=== PATIENT | male | born 1965 | race Hispanic/Latino ===

== ENCOUNTER 2019-09-07 08:59 | Emergency (ER) | payer BC ==
[2019-09-07] MEDS ORDERED: Dexamethasone 10 MG/ML VIAL ONE (09:59)
[2019-09-07 10:05] LABS: #Eosinphils 0.1 thou/uL (0.0-0.7); #Lymphocytes 1.5 thou/uL (1.20-3.40); #Monocytes 0.4 thou/uL (0.11-0.59); #Neutrophils 3.1 thou/uL (1.40-6.50); %Basophils 0.6 % (0.0-1.0); %Eosinophils 2.1 % (0.0-10.0); %Lymphocytes 29.6 % (21.0-51.0); %Monocytes 7.1 % (0.0-10.0); %Neutrophils 60.6 % (42.0-75.0); Hemoglobin 14.3 g/dL (14.0-18.0); Mean Corpuscular HGB CONC 34.4 g/dL (32.0-36.0); Mean Corpuscular Hemoglobin 31.1 pg (27.0-31.0); Mean Corpuscular Volume 90.3 fL (78.0-98.0); Mean Platelet Volume 9.4 fL (7.4-10.4); Platelet Count 151 thou/uL (130-400); RBC Distribution Width 11.7 % (11.5-14.5); Red Blood Cell (RBC) Count 4.61 mill/uL (4.70-6.10); White Blood Cell (WBC) Count 5.2 thou/uL (4.8-10.8)
[2019-09-07] MEDS ORDERED: EPINEPHrine 1 MG/ML AMP ONE (10:10)
[2019-09-07 10:21] LABS: ALT (SGPT) 69 U/L (8-55); AST (SGOT) 60 U/L (5-34); Albumin 4.3 g/dL (3.5-5.0); Alkaline Phosphatase 101 U/L (40-110); Anion Gap 18 mmol/L (10-20); BUN (Urea Nitrogen) 14 mg/dL (8.4-25.7); Bilirubin, Total 0.8 mg/dL (0.2-1.2); Calc. Creatinine Clearance 0 mL/min (70-130); Calcium 9.5 mg/dL (7.8-10.44); Carbon Dioxide 17 mmol/L (22-29); Chloride 107 mmol/L (98-107); Estimated GFR-MDRD Greater than 90; Globulin 3.5 g/dL (2.4-3.5); Glucose 123 mg/dL (70-105); Potassium 4.4 mmol/L (3.5-5.1); Protein, Total 7.8 g/dL (6.0-8.3); Sodium 138 mmol/L (136-145)
[2019-09-07] MEDS ORDERED: Lorazepam 2 MG/ML VIAL ONE (10:23)
[2019-09-07] MEDS ORDERED: diphenhydrAMINE 50 MG/ML VIAL ONE (10:49)
--- NOTE | 2019-09-07 10:58 | CT ---
EXAM: CT neck with contrast HISTORY: The patient feels like something is in his neck. He can't cough it up. Patient recently ate baked chicken. COMPARISON: None TECHNIQUE: Multiple contiguous axial images were obtained and a CT of the neck with contrast. Sagitta l and coronal reformats were performed. FINDINGS: No mucosal abnormality is seen in the nasopharynx, oropharynx, hypopharynx, or subglottic regions. Th e patient's uvula is prominent. No mass is seen. No radiopaque foreign body is seen. The parapharyngeal spaces are symmetric. No cervical adenopathy is seen. The salivary glands are symmetric without focal abnormality. The thyroid is unremarkable. No osseous abnormality is seen in the cervical spine. The visualized intracranial structures are unremarkable. The lung apices are unremarkable. IMPRESSION: No significant soft tissue abnormality of the neck.
== END 2019-09-07 12:16 | disposition home or self-care (01) ==
LOC: ERS 08:59
DX: K12.2 Cellulitis and abscess of mouth (principal); M10.9 Gout, unspecified; E11.9 Type 2 diabetes mellitus without complications; E03.9 Hypothyroidism, unspecified; Z79.82 Long term (current) use of aspirin; Z79.84 Long term (current) use of oral hypoglycemic drugs; Z79.899 Other long term (current) drug therapy
CPT/HCPCS: 70491; 80053; 85025; 96361; 96372; 96374; 96375; J0171; J1100; J1200; J2060

== ENCOUNTER 2020-09-02 10:52 | Outpatient (CLI) | payer BC ==
--- NOTE | 2020-09-02 11:34 | RAD ---
Exam:2 views right hip HISTORY: Pain COMPARISON: None FINDINGS: Contour of the femoral head is maintained. Hip joint spaces preserved. No fracture. Visualized sacrum and bony pelvis are intact. IMPRESSION: No significant degenerative change.
== END 2020-09-02 10:53 | disposition home or self-care (01) ==
LOC: BICRAD 10:52
PROVIDERS: ATTEND Family Medicine
DX: M25.551 Pain in right hip (principal)

== ENCOUNTER 2021-03-03 06:37 | Emergency (ER) | payer BC ==
[2021-03-03] MEDS ORDERED: diphenhydrAMINE 25 MG CAP ONE (07:06)
[2021-03-03] MEDS ORDERED: Dexamethasone 4 MG TAB ONE (07:13)
== END 2021-03-03 08:43 | disposition home or self-care (01) ==
LOC: ERS 06:37
DX: K12.2 Cellulitis and abscess of mouth (principal); E11.9 Type 2 diabetes mellitus without complications; E03.9 Hypothyroidism, unspecified; Z79.899 Other long term (current) drug therapy; Z79.82 Long term (current) use of aspirin
CPT/HCPCS: 87081; 87430; 99284; J8540; Q0163

== ENCOUNTER 2022-05-14 13:48 | Observation (INO) | payer BC ==
[2022-05-14] MEDS ORDERED: Aspirin Chewable 81 MG TAB ONE (14:34)
[2022-05-14 14:36] LABS: #Eosinphils 0.1 thou/uL (0.0-0.7); #Lymphocytes 1.6 thou/uL (1.20-3.40); #Monocytes 0.6 thou/uL (0.11-0.59); #Neutrophils 4.1 thou/uL (1.40-6.50); %Basophils 0.6 % (0.0-1.0); %Eosinophils 2.2 % (0.0-10.0); %Lymphocytes 24.5 % (21.0-51.0); %Monocytes 9.1 % (0.0-10.0); %Neutrophils 63.6 % (42.0-75.0); Hemoglobin 16.8 g/dL (14.0-18.0); Mean Corpuscular HGB CONC 33.5 g/dL (32.0-36.0); Mean Corpuscular Volume 92.7 fL (78.0-98.0); Mean Platelet Volume 10.9 fL (7.4-10.4); Platelet Count 122 thou/uL (130-400); White Blood Cell (WBC) Count 6.4 thou/uL (4.8-10.8)
[2022-05-14 14:58] LABS: ALT (SGPT) 63 U/L (8-55); AST (SGOT) 53 U/L (5-34); Alkaline Phosphatase 75 U/L (40-110); Anion Gap 14 mmol/L (10-20); BUN (Urea Nitrogen) 12 mg/dL (8.4-25.7); Bilirubin, Total 0.6 mg/dL (0.2-1.2); Calc. Creatinine Clearance 0 mL/min (70-130); Carbon Dioxide 25 mmol/L (22-29); Chloride 103 mmol/L (98-107); Estimated GFR 101; Globulin 3.3 g/dL (2.4-3.5); Glucose 108 mg/dL (70-105); Lipase 44 U/L (8-78); Magnesium 1.8 mg/dL (1.6-2.6); Potassium 3.8 mmol/L (3.5-5.1); Protein, Total 7.3 g/dL (6.0-8.3); Sodium 138 mmol/L (136-145)
[2022-05-14 18:26] LABS: Troponin I Less than 0.010 ng/mL (< 0.028)
[2022-05-14] MEDS ORDERED: Dextrose 5% in Water 1,000 ML IV PRN (18:46)
[2022-05-14] MEDS ORDERED: HumaLOG 300 UNITS/3 ML VIAL SC PRN ×2 (18:46)
[2022-05-14] MEDS ORDERED: Acetaminophen 325 MG TAB PO PRN (18:46)
[2022-05-14] MEDS ORDERED: Dextrose 50% Abboject 50 ML SYRINGE SLOW IVP PRN (18:46)
[2022-05-14] MEDS ORDERED: Lisinopril 10 MG TAB ONE (18:49)
[2022-05-14] MEDS ORDERED: Nitroglycerin 0.4 MG TAB (25 Tab Bottle) SL PRN (18:59)
[2022-05-14] MEDS ORDERED: hydrALAZINE 10 MG TAB PO PRN (19:17)
[2022-05-14] MEDS ORDERED: hydrALAZINE 20 MG/ML VIAL SLOW IVP PRN (19:32)
[2022-05-14 20:49] LABS: Hemoglobin A1c 5.9 % (4.0-6.0)
[2022-05-14 20:57] VITALS: BMI 42.6
[2022-05-14 21:06] LABS: Troponin I Less than 0.010 ng/mL (< 0.028)
[2022-05-15 04:57] LABS: #Eosinphils 0.2 thou/uL (0.0-0.7); #Lymphocytes 1.8 thou/uL (1.20-3.40); #Monocytes 0.6 thou/uL (0.11-0.59); #Neutrophils 3.1 thou/uL (1.40-6.50); %Basophils 0.3 % (0.0-1.0); %Eosinophils 2.8 % (0.0-10.0); %Lymphocytes 31.3 % (21.0-51.0); %Monocytes 10.8 % (0.0-10.0); %Neutrophils 54.9 % (42.0-75.0); Hemoglobin 16.4 g/dL (14.0-18.0); Mean Corpuscular HGB CONC 32.7 g/dL (32.0-36.0); Mean Corpuscular Hemoglobin 30.2 pg (27.0-31.0); Mean Corpuscular Volume 92.4 fL (78.0-98.0); Platelet Count 120 thou/uL (130-400); RBC Distribution Width 11.9 % (11.5-14.5); Red Blood Cell (RBC) Count 5.44 mill/uL (4.70-6.10); White Blood Cell (WBC) Count 5.6 thou/uL (4.8-10.8)
[2022-05-15 05:23] LABS: ALT (SGPT) 59 U/L (8-55); AST (SGOT) 45 U/L (5-34); Albumin 3.8 g/dL (3.5-5.0); Alkaline Phosphatase 69 U/L (40-110); Anion Gap 12 mmol/L (10-20); BUN (Urea Nitrogen) 9 mg/dL (8.4-25.7); Bilirubin, Total 0.5 mg/dL (0.2-1.2); Calc. Creatinine Clearance 206 mL/min (70-130); Calcium 8.6 mg/dL (7.8-10.44); Carbon Dioxide 27 mmol/L (22-29); Cardiac Risk 4.2 (Less than 4.5); Chloride 104 mmol/L (98-107); Cholesterol 123 mg/dl (< 200 Desired); Estimated GFR 102; Globulin 2.7 g/dL (2.4-3.5); Glucose 87 mg/dL (70-105); HDL Cholesterol 29 mg/dL (>60 Neg Risk); LDL Cholesterol, Calculated 73 mg/dL; Potassium 3.8 mmol/L (3.5-5.1); Protein, Total 6.5 g/dL (6.0-8.3); Sodium 139 mmol/L (136-145); Triglycerides 103 mg/dL (Less than 150)
[2022-05-15] MEDS ORDERED: Levothyroxine Sodium 125 MCG TAB PO SCH (06:00)
[2022-05-15] MEDS ORDERED: Regadenoson 0.4 MG/5 ML SYRINGE ONE (08:33)
[2022-05-15] MEDS ORDERED: Empagliflozin 25 MG TAB PO SCH (09:00)
[2022-05-15] MEDS ORDERED: Lisinopril 10 MG TAB PO SCH (09:00)
[2022-05-15] MEDS ORDERED: Glimepiride 4 MG TAB PO SCH (09:00)
[2022-05-15] MEDS ORDERED: Allopurinol 100 MG TAB PO SCH (09:00)
[2022-05-15] MEDS ORDERED: Aspirin Chewable 81 MG TAB PO SCH (09:00)
[2022-05-15 11:43] VITALS: BP 145/69; TEMP 97.5
[2022-05-15] MEDS ORDERED: Rosuvastatin 20 MG TAB PO SCH (21:00)
== END 2022-05-15 15:08 | disposition home or self-care (01) ==
LOC: ERS 13:48 → 2SW 17:32
PROVIDERS: ADMIT Student in an Organized Health Care Education/Training Program; ATTEND Student in an Organized Health Care Education/Training Program
DX: R07.2 Precordial pain (principal); I10 Essential (primary) hypertension; R74.01 Elevation of levels of liver transaminase levels; D69.6 Thrombocytopenia, unspecified; E11.65 Type 2 diabetes mellitus with hyperglycemia; E03.9 Hypothyroidism, unspecified; M10.9 Gout, unspecified; Z79.82 Long term (current) use of aspirin; Z79.84 Long term (current) use of oral hypoglycemic drugs; Z79.890 Hormone replacement therapy; Z79.899 Other long term (current) drug therapy; Z91.013 Allergy to seafood; Z91.041 Radiographic dye allergy status; Z20.822 Contact with and (suspected) exposure to COVID-19
CPT/HCPCS: 36415; 36416; 71045; 78452; 80053; 80061; 83036; 83690; 83735; 84484; 85025; 85379; 93005; 93017; 94760; A9500; G0378; J2785; U0003; U0005

== ENCOUNTER 2022-10-13 08:47 | Emergency (ER) | payer BC, OTHER ==
[2022-10-13 09:22] LABS: #Eosinphils 0.2 thou/uL (0.0-0.7); #Lymphocytes 1.4 thou/uL (1.20-3.40); #Monocytes 0.4 thou/uL (0.11-0.59); #Neutrophils 3.4 thou/uL (1.40-6.50); %Lymphocytes 26.1 % (21.0-51.0); %Monocytes 7.6 % (0.0-10.0); %Neutrophils 63.3 % (42.0-75.0); Hemoglobin 16.9 g/dL (14.0-18.0); Mean Corpuscular HGB CONC 34.1 g/dL (32.0-36.0); Mean Corpuscular Hemoglobin 30.2 pg (27.0-31.0); Mean Corpuscular Volume 88.8 fl (78.0-98.0); Mean Platelet Volume 10.4 fL (7.4-10.4); Platelet Count 125 10x3/uL (130-400); RBC Distribution Width 12.2 % (11.5-14.5); Red Blood Cell (RBC) Count 5.58 mill/uL (4.70-6.10); White Blood Cell (WBC) Count 5.4 10x3/uL (4.8-10.8)
[2022-10-13 09:42] LABS: ALT (SGPT) 35 U/L (8-55); AST (SGOT) 36 U/L (5-34); Albumin 4.3 g/dL (3.5-5.0); Alkaline Phosphatase 100 U/L (40-110); Anion Gap 11 mmol/L (10-20); BUN (Urea Nitrogen) 10 mg/dL (8.4-25.7); Bilirubin, Total 0.6 mg/dL (0.2-1.2); Calc. Creatinine Clearance 0 mL/min (70-130); Calcium 9.4 mg/dL (7.8-10.44); Carbon Dioxide 26 mmol/L (22-29); Chloride 105 mmol/L (98-107); Estimated GFR 100; Glucose 126 mg/dL (70-105); Lipase 64 U/L (8-78); Protein, Total 7.3 g/dL (6.0-8.3); Sodium 138 mmol/L (136-145)
[2022-10-13] MEDS ORDERED: Ondansetron PF 4 MG/2 ML Vial ONE (10:11)
[2022-10-13 10:27] LABS: Bilirubin Negative (Negative); Blood, Urine Negative (Negative); Clarity Clear (Clear); Glucose, Urine (Dipstick) Greater than 1000 mg/dL (Negative); Ketone, Urine Negative (Negative); Leukocyte Negative Leu/uL (Negative); Nitrite Negative (Negative); Protein, Urine (Dipstick) Negative (Neg-Trace); Specific Gravity, Urine 1.006 (1.002-1.036); Urobilinogen Normal mg/dL (Less than 2); pH, Urine 5.5 (5.0-9.0)
== END 2022-10-13 10:32 | disposition home or self-care (01) ==
LOC: ERS 08:47
DX: R11.0 Nausea (principal); R19.7 Diarrhea, unspecified; E11.9 Type 2 diabetes mellitus without complications; E03.9 Hypothyroidism, unspecified
CPT/HCPCS: 71045; 80053; 81003; 83690; 84484; 85025; 87324; 87449; 93005; 94760; 96374; J2405

== ENCOUNTER 2023-01-04 05:28 | Emergency (ER) | payer OTHER ==
[2023-01-04 06:10] LABS: #Basophils 0.1 thou/uL (0.0-0.2); #Eosinphils 0.1 thou/uL (0.0-0.7); #Lymphocytes 1.5 thou/uL (1.20-3.40); #Monocytes 0.4 thou/uL (0.11-0.59); #Neutrophils 3.1 thou/uL (1.40-6.50); %Basophils 1.2 % (0.0-1.0); %Eosinophils 2.6 % (0.0-10.0); %Lymphocytes 28.6 % (21.0-51.0); %Monocytes 7.7 % (0.0-10.0); %Neutrophils 59.9 % (42.0-75.0); Hemoglobin 16.7 g/dL (14.0-18.0); Mean Corpuscular HGB CONC 34.4 g/dL (32.0-36.0); Mean Corpuscular Hemoglobin 31.8 pg (27.0-31.0); Mean Corpuscular Volume 92.5 fl (78.0-98.0); Mean Platelet Volume 10.2 fL (7.4-10.4); Platelet Count 129 10x3/uL (130-400); RBC Distribution Width 11.8 % (11.5-14.5); Red Blood Cell (RBC) Count 5.25 mill/uL (4.70-6.10); White Blood Cell (WBC) Count 5.2 10x3/uL (4.8-10.8)
[2023-01-04 06:54] LABS: Albumin 4.2 g/dL (3.5-5.0)
[2023-01-04 06:55] LABS: Chloride 107 mmol/L (98-107); Potassium 4.1 mmol/L (3.5-5.1); Sodium 139 mmol/L (136-145)
[2023-01-04 06:56] LABS: Calcium 8.9 mg/dL (7.8-10.44)
[2023-01-04 06:57] LABS: Globulin 2.8 g/dL (2.4-3.5); Glucose 125 mg/dL (70-105)
[2023-01-04 06:58] LABS: Anion Gap 13 mmol/L (10-20); Carbon Dioxide 23 mmol/L (22-29)
[2023-01-04 06:59] LABS: Bilirubin, Total 0.5 mg/dL (0.2-1.2)
[2023-01-04 07:00] LABS: Alkaline Phosphatase 108 U/L (40-110); Calc. Creatinine Clearance 0 mL/min (70-130); Estimated GFR 93
[2023-01-04 07:01] LABS: BUN (Urea Nitrogen) 15 mg/dL (8.4-25.7)
[2023-01-04 07:02] LABS: AST (SGOT) 31 U/L (5-34)
[2023-01-04 07:03] LABS: ALT (SGPT) 28 U/L (8-55); Lipase 52 U/L (8-78)
[2023-01-04] MEDS ORDERED: Famotidine/PF 20 mg/2ml Vial ONE (07:18)
[2023-01-04] MEDS ORDERED: methylPREDNISolone Sod Succ 40 MG VIAL ONE (07:18)
[2023-01-04] MEDS ORDERED: diphenhydrAMINE 50 MG/ML VIAL ONE (07:18)
[2023-01-04 07:49] LABS: Bilirubin Negative (Negative); Blood, Urine Negative (Negative); Clarity Clear (Clear); Glucose, Urine (Dipstick) Greater than 1000 mg/dL (Negative); Ketone, Urine Negative (Negative); Leukocyte Negative Leu/uL (Negative); Nitrite Negative (Negative); Protein, Urine (Dipstick) Negative (Neg-Trace); Specific Gravity, Urine 1.007 (1.002-1.036); Urobilinogen Normal mg/dL (Less than 2); pH, Urine 6.5 (5.0-9.0)
[2023-01-04] MEDS ORDERED: Lorazepam 1 MG TAB ONE (08:31)
== END 2023-01-04 09:55 | disposition home or self-care (01) ==
LOC: ERS 05:28
DX: R10.13 Epigastric pain (principal); R11.0 Nausea; E03.9 Hypothyroidism, unspecified; E11.9 Type 2 diabetes mellitus without complications
CPT/HCPCS: 36415; 71045; 74177; 80053; 81003; 83690; 83880; 84484; 85025; 93005; 96374; 96375; J1200; J2920; S0028

== ENCOUNTER 2023-04-25 11:31 | Outpatient (CLI) | payer OTHER | END 2023-04-25 11:32 | disposition home or self-care (01) | LOC: RAD 11:31 | PROVIDERS: ATTEND Family Medicine | DX: R06.02 Shortness of breath (principal) | CPT/HCPCS: 71046 ==

== ENCOUNTER 2023-08-28 13:34 | Outpatient (CLI) | payer OTHER | END 2023-08-28 13:35 | disposition home or self-care (01) | LOC: CT 13:34 | PROVIDERS: ATTEND Family Medicine | DX: R91.1 Solitary pulmonary nodule (principal) | CPT/HCPCS: 71250 ==

== ENCOUNTER 2024-04-29 18:54 | Emergency (ER) | payer OTHER ==
[2024-04-29 20:43] LABS: #Basophils 0.04 10x3/uL (0.0-0.2); %Basophils 0.6 % (0.0-1.0); %Eosinophils 2.4 % (0.0-10.0); %Lymphocytes 27.4 % (21.0-51.0); %Monocytes 7.1 % (0.0-10.0); %Neutrophils 62.2 % (42.0-75.0); Hematocrit 42.4 % (42.0-52.0); Hemoglobin 14.7 g/dL (14.0-18.0); Mean Corpuscular HGB CONC 34.7 g/dL (32.0-36.0); Mean Corpuscular Hemoglobin 30.4 pg (27.0-31.0); Mean Corpuscular Volume 87.8 fL (78.0-98.0); Mean Platelet Volume 12.3 fL (7.4-10.4); Platelet Count 148 10x3/uL (130-400); RBC Distribution Width 11.6 % (11.5-14.5); Red Blood Cell (RBC) Count 4.83 mill/uL (4.70-6.10)
[2024-04-29 21:00] LABS: ALT (SGPT) 61 U/L (8-55); AST (SGOT) 61 U/L (5-34); Albumin 4.2 g/dL (3.5-5.0); Alkaline Phosphatase 97 U/L (40-110); Anion Gap 14 mmol/L (10-20); BUN (Urea Nitrogen) 12 mg/dL (8.4-25.7); Bilirubin, Total 0.7 mg/dL (0.2-1.2); Calc. Creatinine Clearance 0 mL/min (70-130); Calcium 9.9 mg/dL (7.8-10.44); Carbon Dioxide 23 mmol/L (22-29); Chloride 105 mmol/L (98-107); Estimated GFR 100; Globulin 3.2 g/dL (2.4-3.5); Glucose 122 mg/dL (70-105); Potassium 3.9 mmol/L (3.5-5.1); Protein, Total 7.4 g/dL (6.0-8.3); Sodium 138 mmol/L (136-145)
[2024-04-29 21:06] LABS: Troponin I 0.014 ng/mL (< 0.028)
[2024-04-29 23:18] LABS: Troponin I 0.017 ng/mL (< 0.028)
== END 2024-04-29 23:35 | disposition home or self-care (01) ==
LOC: ERS 18:54
DX: R07.89 Other chest pain (principal); I10 Essential (primary) hypertension; R74.01 Elevation of levels of liver transaminase levels; E11.9 Type 2 diabetes mellitus without complications; E03.9 Hypothyroidism, unspecified; M10.9 Gout, unspecified; Z55.6 Problems related to health literacy; Z79.899 Other long term (current) drug therapy
CPT/HCPCS: 36415; 71046; 80053; 84484; 85025; 93005